=== PATIENT | male | born 1940 | race Caucasian/White ===

== ENCOUNTER 2017-01-07 14:28 | Inpatient (IN) ==
[2017-01-07 14:49] LABS: MANUAL DIFF NEEDED? NO
[2017-01-07 14:52] LABS: BASO% 0.3 % (0.0-0.8); EOS# 0.11 X1000 (0.0-0.7); HEMATOCRIT 37.2 % (42.0-52.0); HEMOGLOBIN 11.9 g/dL (14.0-18.0); IMM GRAN# 0.07 X1000 (0.0-0.04); IMM GRAN% 0.6 % (0.0-0.5); LYMPH% 16.2 % (20.5-51.1); MCH 29.4 PG (27-31); MCV 91.9 FL (81-99); MONO# 1.19 X1000 (0.11-0.59); MONO% 10.7 % (1.7-9.3); MPV 10.6 FL (7.4-10.4); NEUT% 71.2 % (42.2-75.2); PLT 378 X1000 (130-400); RBC 4.05 XMIL (4.7-6.1)
[2017-01-07 15:00] LABS: URINE SOURCE CATH
[2017-01-07 15:08] LABS: INR 1.03; PROTIME 10.8 Seconds (9.2-11.7); PTT 27.5 Seconds (22.0-36.0)
[2017-01-07 15:11] LABS: BILIRUBIN URINE SMALL (NEGATIVE); BLOOD URINE LARGE (NEGATIVE); CLARITY TURBID (CLEAR); COLOR BROWN; GLUCOSE URINE 100 mg/dL (NEGATIVE); LEUKOCYTES URINE MODERATE (NEGATIVE); NITRITE URINE POSITIVE (NEGATIVE); PH URINE 7.5; PROTEIN URINE 100 mg/dL (NEGATIVE); SP GRAVITY URINE 1.025
[2017-01-07 15:17] LABS: AGAP 15; ALBUMIN 3.6 g/dL (3.5-5.0); ALKALINE PHOSPHATASE 54 U/L (32-122); BUN 15 mg/dL (8-22); CALCIUM 9.7 mg/dL (8.8-10.2); CHLORIDE 100 mmol/L (98-107); COSMO 271; GOT 13 U/L (10-34); GPT 9 U/L (10-44); POTASSIUM 4.6 mmol/L (3.5-5.1); SODIUM 135 mmol/L (136-145); TCO2 20 mmol/L (25-35); TOTAL BILIRUBIN 0.24 mg/dL (0.20-1.00); TOTAL PROTEIN 7.1 g/dL (6.3-8.3)
[2017-01-07 15:21] LABS: URINE CAST NONE SEEN /LPF; URINE EPITHELIAL CELLS >10 /HPF (<10); URINE RBC TNTC /HPF (<10); URINE WBC TNTC /HPF (<10)
[2017-01-07 15:22] LABS: URINE CRYSTAL TRIPLE PHOS PRESENT /HPF
[2017-01-07 15:23] LABS: URINE CULTURE NEEDED? YES
[2017-01-07] MEDS ORDERED: NS 1,000 ML IV ONE ×3 (15:40→21:30)
[2017-01-07] MEDS ORDERED: ZOSYN 3.375 GM/NS 3.375 GM/50 ML IVPB IV ONE (16:46)
[2017-01-07 16:49] LABS: AMYLASE 59 U/L (20-200); LIPASE 76 U/L (13-60)
--- NOTE | 2017-01-07 16:56 | Diag Imaging Result Doc PS360 ---
EXAM: FLAT/UPRIGHT ABD/1 VIEW CHEST - 01/07/2017 HISTORY: Abd pain TECHNIQUE: Supine and upright abdomen one view chest COMPARISON: Portable chest of 06/03/2013 FINDINGS: The bowel gas pattern is unremarkable. There are some retained fecal debris in the colon. There is no free air identified. There are multiple metallic coils noted on the right. Upright chest shows upper normal heart size. There are calcified granuloma and calcified hilar mediastinal lymph nodes on the right from old granulomatous disease. There is a question a small nodular opacity at the right perihilar region. There is no consolidation, pleural effusion, or pneumothorax identified. IMPRESSION: Unremarkable bowel gas pattern. Apparent constipation. Questionable right perihilar nodule. Follow-up PA and lateral chest radiographs recommended when patient's condition permits. Electronically signed by Desean Blanchard 01/07/2017 4:54 PM
--- NOTE | 2017-01-07 19:34 | Diag Imaging Result Doc PS360 ---
EXAM: ABDOMEN/PELVIS W/CONTRAST - 01/07/2017 HISTORY: Abd pain and fecal component in the Cole bag TECHNIQUE: With oral and intravenous contrast. Dose reduction protocol. COMPARISON: None. FINDINGS: The visualized lung bases appear clear except for dependent atelectasis. There are calcified granulomas in the liver and spleen from old granulomatous disease. There are no other substantial abnormalities of the liver or spleen identified. There is nonspecific mild fullness of the bilateral adrenal glands. There are two calcifications in the pancreatic tail and there is dilatation the pancreatic duct in the pancreatic tail, which can be seen with chronic pancreatitis. There is a 2.2 x 1.7 cm cystic lesion in the pancreatic body which may represent pseudocysts or cystic pancreatic neoplasm. There is no acute pancreatic inflammation identified. There are no calcified gallstones seen. There is a 5 cm cyst which arises at the lower right kidney. A few additional tiny renal cysts. There is no evidence of solid renal mass or hydronephrosis. There are scattered nonspecific small retroperitoneal lymph nodes. There is a small anterior abdominal wall hernia at the right lower abdomen which contains a small amount of small bowel. There is no evidence of small bowel obstruction. There are postsurgical changes at the upper rectum. There is presacral soft tissue thickening. There is colonic diverticulosis which is most extensive at the sigmoid colon. There is a fistulous tract which extends between the anterior upper rectum and the posterior urinary bladder. There is apparent fecal material within the fistulous tract and within the urinary bladder. The urinary bladder painter appear thickened which may relate to cystitis. There is a suprapubic catheter in the urinary bladder. There is a small sinus tract which extends from the lateral left side of the superiormost rectum to the nearby presacral thickening. There is no discrete inflamed diverticulum identified. There is no free air. IMPRESSION: Postsurgical changes at the upper rectum. Presacral soft tissue thickening which may represent posttreatment scarring or chronic inflammation. Superimposed acute inflammation or tumor within the soft tissue thickening is not excluded. Fistula between the anterior superior rectum and the posterior superior urinary bladder. Extension of fecal material from the rectum into the urinary bladder. Thickened urinary bladder painter which may relate to cystitis. There is a suprapubic catheter within urinary bladder. Small air-containing sinus tract arising from superiormost rectum on the left. Colonic diverticulosis which is most extensive at the sigmoid. No discrete inflamed diverticulum identified. Small right lower anterior abdominal wall hernia which contains a small amount of small bowel. No evidence of small bowel obstruction. Calcifications and dilated pancreatic duct at pancreatic tail which may relate to chronic pancreatitis. 2.2 x 1.7 cm cystic lesion in pancreatic body which may represent pseudocyst or cystic pancreatic neoplasm. No evidence of acute pancreatic inflammation. Electronically signed by Desean Blanchard 01/07/2017 7:32 PM
[2017-01-07] MEDS ORDERED: TYLENOL PO PRN (21:51)
[2017-01-07] MEDS ORDERED: QUESTRAN PO ONE (21:51)
[2017-01-07] MEDS ORDERED: FLAGYL PO ONE (21:51)
[2017-01-07] MEDS ORDERED: UROGESIC-BLUE PO PRN (21:51)
[2017-01-07] MEDS ORDERED: ZOFRAN IV PRN (21:51)
[2017-01-07] MEDS: ZOCOR PO SCH (22:34)
[2017-01-07] MEDS: ZOSYN 3.375 GM/NS 3.375 GM/50 ML IVPB IV SCH (23:37)
[2017-01-07] MEDS: NS 1,000 ML IV SCH (23:37)
--- NOTE | 2017-01-08 02:40 | HISTORY AND PHYSICAL ---
PRIMARY CARE PHYSICIAN: Dr. Buckner. REASON FOR ADMISSION: A 2-day history of brownish urine in Cole bag and 10-day history of persistent diarrhea. HISTORY OF PRESENT ILLNESS: Mr. Parish Alvarado is a pleasant 76-year-old male with past medical history of prior BPH, neurogenic bladder status post suprapubic cystostomy, type 2 diabetes, colon cancer status post resection, coronary disease status post stent, hyperlipidemia, hypertension, prior CVA who comes in today with a 10-day history of persistent diarrhea with no blood or melena. Four to 5 days preceding this diarrhea, he had been on antibiotics for presumed UTI based on the culture report that was done by his primary care physician, Dr. Buckner. The patient's diarrhea is not related to meals. The says she has had to change him more frequently, more than 10-15 times a day and there is no warning when the diarrhea strikes. Surprisingly, no diffuse abdominal pain, no fever, no chills. She was concerned today when she noticed that the contents in his leg bag were brownish in color and looked somewhat like his feces. REVIEW OF SYSTEMS: Patient denies any cardiorespiratory complaints whatsoever but he is feeling weaker than normal. No new neurological complaints. A 12-system review is negative. Positive findings per HPI. ALLERGIES: None. MEDICATIONS: The patient's medication list has not been reconciled but I did note he was on Levaquin 250 mg daily and Macrobid 100 mg b.i.d. The rest of the medications I am going to mention have not been fully reconciled. 1. Norvasc 5 mg daily. 2. Aspirin 81 mg daily. 3. Plavix 75 mg daily. 4. Cymbalta 60 mg daily. 5. Hydrochlorothiazide 25 mg daily. 6. Insulin 70/30 25 units with breakfast and 30 units with supper. 7. Lisinopril 40 mg daily. 8. Metformin 850 mg b.i.d. 9. Methylene blue 1 daily. 10. Metoprolol succinate 50 mg daily. 11. Protonix 40 mg daily. 12. Zocor 40 mg at bedtime. PAST SURGICAL HISTORY: He has had a partial colectomy in 2001, vasectomy, port placement, back surgery, stent placement, hernia surgery, suprapubic cystostomy. FAMILY HISTORY: Positive for diabetes, stroke, heart disease and uterine cancer in first-degree relatives. SOCIAL HISTORY: He is a , , lives with . Does not smoke, drink, or use illicit drugs. LAB WORK: White count 11,000, hemoglobin 11, hematocrit 37, platelets 378,000. Sodium is 135, bicarb 28, anion gap 15, BUN 15, creatinine 1.1. Troponin 0.021. Lipase 76. Lactate 4. PT and PTT is normal. Urinalysis positive for large blood, positive nitrate, lvd-dcoalbjr-mw-count WBCs and qkn-waudwmyz-mj-count RBCs, 4+ bacteria, yeast was present. CT scan of abdomen was done and it showed postsurgical changes in the upper rectum, presacral soft tissue thickening which may represent posttreatment scarring or chronic inflammation. Tumor or acute inflammation cannot be excluded. There is also a fistula between the anterior superior rectum and the posterior superior urinary bladder, extension of fecal material from the rectum into the urinary bladder is noted. Also has colonic diverticulosis and findings related to chronic pancreatitis is also noted. The patient also has an anterior abdominal hernia which showed small amount of bowel which is not incarcerated. abdominal x-ray showed a questionable perihilar node. Followup PA and lateral chest is recommended at that time. PHYSICAL EXAMINATION: GENERAL: Pleasant, elderly man who is not in acute distress. He is A and O x3 with normal mood and affect. HEENT: Head is normocephalic, atraumatic. Eyes: SCOTT EOMI. He is anicteric but pale. ENT and oropharynx exam is grossly normal, mildly moist oral mucosa. No oropharyngeal exudates and no cyanosis noted. VITAL SIGNS: Blood pressure is 169/56, heart rate 72, respirations is 20, temperature 98.9 degrees, 97% on room air. NECK: Supple. No JVD or carotid bruit. No thyromegaly. Mild decreased skin turgor. CHEST: Clear to auscultation. Good entry in both lung keyes. CARDIOVASCULAR: First and sounds heard. No gallops, rubs. Rhythm is regular. ABDOMEN: Protuberant, soft, with a reducible ventral hernia. There is tenderness confined to the suprapubic area. There is a pubic cystostomy with no overt fecal drainage of purulent material draining at the ostomy site. The aforementioned abdominal tenderness. There is no rebound or guarding noted. No mass is appreciated. Bowel sounds are normal. RECTAL: Deferred. EXTREMITIES: There is 1+ pitting edema in the lower extremities. Pulses distally in all extremities have good volume and are symmetrical. No clubbing or peripheral cyanosis. NEUROLOGICAL: Patient has dense left-sided hemiplegia. Power on the right side is rated at 4/5. No other neurological findings of note. SKIN: Intact with no overt breakdown, at least from the ventral portion of this patient. I did not look at his sacral area. MUSCULOSKELETAL: Appears grossly normal. ASSESSMENT: 1. Rectovesical fistula. 2. Urinary tract infection presumably from #1. 3. Subacute diarrhea,? antibiotic induced diarrhea versus Clostridium difficile. 4. Coronary artery disease. 5. Type 2 diabetes. 6. Hypertension. 7. Neurogenic bladder. 8. Chronic pancreatitis. 9. Hyperlipidemia. PLAN: 1. Immediate goal is to hydrate this patient due to the fact he has depressed lactate in the face of normal kidney and renal failure. This is probably secondary to significant hypovolemia from his persistent diarrhea. Repeat lactate later to document the effect of fluid hydration on his volume status. 2. Patient will be empirically started on Questran and Flagyl in case this patient has Clostridium difficile from his use of multiple antibiotics in the last 2 weeks. Clostridium difficile toxin has been ordered and will need to be followed. 3. Patient was empirically started on Zosyn for presumptive UTI. This UTI may be just colonization but, however, due to the amount of fecal material and a documented rectovesical fistula, this could probably be true/real infection. Will consult Dr. Gilbert for his expertise in addressing this matter. If surgical intervention is going to be carried out, I have held the patient's Plavix but continued aspirin in anticipation of this. 4. Regarding diabetes, will start patient on Lantus and sliding scale. Blood pressure medications will be relatively conservative since the patient may have some significant hypovolemia and would not want to aggravate the patient's compensatory mechanisms to correct this. 5. DVT prophylaxis will be SCDs in anticipation of possible intervention. cc: MD Werner Wooten MD Nixon Gillespie, MD
[2017-01-08] MEDS: ZOSYN 3.375 GM/NS 3.375 GM/50 ML IVPB IV SCH ×4 (05:31→23:59)
[2017-01-08] MEDS: NS 1,000 ML IV SCH ×2 (05:42→08:53)
[2017-01-08 06:21] LABS: MANUAL DIFF NEEDED? NO
[2017-01-08 06:32] LABS: BASO% 0.3 % (0.0-0.8); EOS# 0.13 X1000 (0.0-0.7); EOS% 1.6 % (0.0-10.0); HEMOGLOBIN 10.1 g/dL (14.0-18.0); IMM GRAN# 0.02 X1000 (0.0-0.04); IMM GRAN% 0.3 % (0.0-0.5); LYMPH# 1.64 X1000 (1.2-3.4); LYMPH% 20.5 % (20.5-51.1); MCH 29.2 PG (27-31); MCHC 31.6 g/dL (33-37); MCV 92.5 FL (81-99); MONO# 0.96 X1000 (0.11-0.59); MPV 10.9 FL (7.4-10.4); NEUT% 65.3 % (42.2-75.2); PLT 284 X1000 (130-400); RBC 3.46 XMIL (4.7-6.1)
[2017-01-08] MEDS: HUMALOG SUBQ SCH ×4 (06:36→22:32)
[2017-01-08] MEDS: PROTONIX PO SCH (06:37)
[2017-01-08 07:34] LABS: AGAP 12; ALBUMIN 2.9 g/dL (3.5-5.0); ALKALINE PHOSPHATASE 45 U/L (32-122); BUN 12 mg/dL (8-22); CHLORIDE 106 mmol/L (98-107); COSMO 278; GOT 12 U/L (10-34); GPT 6 U/L (10-44); POTASSIUM 4.7 mmol/L (3.5-5.1); SODIUM 139 mmol/L (136-145); TCO2 21 mmol/L (25-35); TOTAL BILIRUBIN 0.34 mg/dL (0.20-1.00); TOTAL PROTEIN 5.7 g/dL (6.3-8.3)
[2017-01-08] MEDS: QUESTRAN PO SCH ×4 (08:45→18:07)
[2017-01-08] MEDS: ASPIRIN PO SCH ×3 (08:47→09:23)
[2017-01-08] MEDS: TOPROL XL PO SCH ×3 (08:47→09:23)
[2017-01-08] MEDS: NORVASC PO SCH ×3 (08:47→09:23)
[2017-01-08] MEDS: FLAGYL PO SCH ×5 (08:47→18:07)
[2017-01-08] MEDS: PRINIVIL PO SCH ×3 (08:47→09:23)
[2017-01-08] MEDS: LANTUS SUBQ SCH ×3 (08:48→09:23)
--- NOTE | 2017-01-08 09:59 | Diag Imaging Result Doc PS360 ---
EXAM: CHEST-1 VIEW HISTORY: lung nodule TECHNIQUE: Upright AP COMPARISON: 01/07/2017 FINDINGS: The lungs are well expanded. The heart is not enlarged. The vessels are not distended. There are no infiltrates. No effusion identified. No definite lung nodules identified. There are scattered granuloma and calcified lymph nodes. IMPRESSION: Stable chest. A CT is recommended if clinical suspicion persists. Electronically signed by Arsh Carmen 01/08/2017 9:56 AM
[2017-01-08] MEDS ORDERED: D5 1/2 NS 1,000 ML IV SCH (17:12)
[2017-01-08] MEDS ORDERED: D5 NS 1,000 ML IV SCH (17:12)
--- NOTE | 2017-01-08 18:08 | PROGRESS NOTE ---
DATE: 01/08/2017 SUBJECTIVE: This patient states that he is feeling fine. He is not complaining of chest pain, belly pain, shortness of breath or headache. Family members at the bedside. No events overnight. OBJECTIVE: Vital Signs: Temperature 98 degrees, pulse 65, respiratory rate 20, blood pressure 157/65, oxygen saturation 99% on room air. HEENT: Head normocephalic. No trauma. PERRLA. Neck: Supple. No JVD. No masses. Central trachea. Chest: Clear to auscultation. No wheezing. No rales. Abdomen: Soft, nontender, nondistended. Obese. Extremities: Trace lower extremity edema. No clubbing. No cyanosis. Neurological: The patient is alert and oriented x3. No focal neurological deficits. Genitourinary: This patient has a Cole catheter and the urine is cloudy. LABORATORY: WBC 8, hemoglobin 10.1, hematocrit 32, platelets 284,000. Sodium 139, potassium 4.7, chloride 106, bicarbonate 21, BUN 12, creatinine 1.1, glucose 116, calcium 8, albumin 2.9. ASSESSMENT AND PLAN: 1. Rectovesical fistula, Urology Department has been consulted. Pending the evaluation and recommendations, we will keep this patient on antibiotics. 2. Urinary tract infection likely secondary to #1. 3. Subacute diarrhea. Clostridium difficile toxin has been negative. He has a positive Hemoccult, we will continue to monitor. 4. History of coronary artery disease. This patient is not complaining of chest pain. We will continue with the same management. 5. Type 2 diabetes. Stable. We will monitor. 6. Hypertension. This is chronic and stable. Blood pressure is in the 150s. We will monitor. 7. Neurogenic bladder. We will monitor. 8. Chronic pancreatitis. Aware. He is not complaining of abdominal pain. 9. Hyperlipidemia. Continue with simvastatin. cc: Darshan Dorado MD
--- NOTE | 2017-01-08 20:45 | CONSULTATION ---
DATE OF CONSULTATION: 01/08/2017 ATTENDING AND REFERRING PHYSICIAN: Hospitalist. HISTORY OF PRESENT ILLNESS: This 76-year-old male has a history of colon cancer. He is status post partial colectomy with subsequent chemoradiation in 2001. He has a history of diverticulitis and was admitted with a colovesical fistula. The patient and state that he noted fecal material in the drainage tubing and bag. The patient's states his suprapubic tube becomes stopped up with fecal material. His CT scan of the abdomen and pelvis with IV contrast confirmed the fistula. The patient has a neurogenic bladder and had a suprapubic tube placed in 2009. He was last seen in the [facility]rology Clinic in 2012. He states home health changes the suprapubic tube and he is followed closely by his family doctor. He has a history of peripheral vascular disease, and is status post CVA x3. PAST MEDICAL HISTORY: Colon cancer, diverticulosis, hypertension, elevated cholesterol, coronary artery disease, peripheral vascular disease, status post multiple CVAs with resulting left-sided weakness. CURRENT MEDICATIONS: Documented on the chart. PAST SURGICAL HISTORY: Cystoscopic exam with placement of suprapubic tube. Partial colectomy, as noted in the history of present illness. Coronary artery stent placement. Lower back surgery. Hernia repair. SOCIAL HISTORY: No tobacco or alcohol use. He lives with his . ALLERGIES: No known drug allergies. REVIEW OF SYSTEMS: Usually in good health. He denies any problems with diabetes or seizure activity. He denies any abdominal pains. PHYSICAL EXAMINATION: General: An obese, age apparent, normally developed, white male, who is cooperative. HEENT: Normal for age. Lungs: Clear. Cardiovascular: Regular rate and rhythm. Abdomen: Obese soft, nontender. No hepatosplenomegaly or masses. Normal bowel sounds. : Uncircumcised male with significant phimosis. The suprapubic tube is in place draining well. The urine appears brown. Both testes are down and atrophic. No inguinal hernias. Rectal: Decreased sphincter tone. Prostate about 30 g, firm. Extremities: +1 pretibial pitting edema. No cyanosis or clubbing. Neurologic: Left-sided weakness to paralysis, right side normal. LABORATORY EVALUATION: He has a white count of 8, hemoglobin 10.1, hematocrit 32, platelets are 284,000. Serum electrolytes are normal. BUN 12, creatinine 1.1. His alkaline phosphatases is 6. Liver functions are normal. IMPRESSION: 1. Colovesical fistula. 2. Diverticulitis. 3. Neurogenic bladder. 4. Indwelling suprapubic tube. The patient's states the suprapubic tube was changed yesterday. RECOMMENDATIONS: Recommend General Surgery consultation. The treatment for a colovesical fistula is partial colectomy. When the fistula is removed along with the diseased colon, the bladder is healed. It rarely has to be sutured closed. With his history of colon cancer with chemoradiation, he will probably need a diversion with formation of a colostomy. Thank you for this consultation. cc: Werner Gilbert MD
[2017-01-08] MEDS: ZOCOR PO SCH (22:32)
[2017-01-09] MEDS ORDERED: NS 500 ML IV ONE ×2 (03:46→03:48)
[2017-01-09 05:55] VITALS: BP 104/72
[2017-01-09] MEDS: ZOSYN 3.375 GM/NS 3.375 GM/50 ML IVPB IV SCH (06:21)
[2017-01-09] MEDS: HUMALOG SUBQ SCH (06:21)
[2017-01-09] MEDS: PROTONIX PO SCH (06:21)
[2017-01-09] MEDS ORDERED: INSULIN PEN NEEDLES ONE (06:28)
[2017-01-09 07:18] LABS: MANUAL DIFF NEEDED? NO
[2017-01-09 07:33] LABS: BASO% 0.2 % (0.0-0.8); EOS# 0.12 X1000 (0.0-0.7); EOS% 1.3 % (0.0-10.0); HEMOGLOBIN 10.2 g/dL (14.0-18.0); IMM GRAN# 0.03 X1000 (0.0-0.04); IMM GRAN% 0.3 % (0.0-0.5); LYMPH# 1.36 X1000 (1.2-3.4); LYMPH% 14.5 % (20.5-51.1); MCH 29.5 PG (27-31); MCHC 31.9 g/dL (33-37); MCV 92.5 FL (81-99); MONO# 1.04 X1000 (0.11-0.59); MONO% 11.1 % (1.7-9.3); MPV 10.7 FL (7.4-10.4); NEUT% 72.6 % (42.2-75.2); PLT 271 X1000 (130-400); RBC 3.46 XMIL (4.7-6.1)
[2017-01-09 07:45] LABS: AGAP 12; BUN 11 mg/dL (8-22); CALCIUM 8.5 mg/dL (8.8-10.2); CHLORIDE 108 mmol/L (98-107); COSMO 283; POTASSIUM 4.6 mmol/L (3.5-5.1); SODIUM 141 mmol/L (136-145); TCO2 21 mmol/L (25-35)
[2017-01-09] MEDS: PRINIVIL PO SCH (11:16)
[2017-01-09] MEDS: FLAGYL PO SCH (11:16)
[2017-01-09] MEDS: NORVASC PO SCH (11:16)
[2017-01-09] MEDS: ASPIRIN PO SCH (11:17)
[2017-01-09] MEDS: TOPROL XL PO SCH (11:17)
[2017-01-09] MEDS: LANTUS SUBQ SCH (11:17)
[2017-01-09] MEDS: QUESTRAN PO SCH (11:18)
--- NOTE | 2017-01-09 11:34 | CONSULTATION ---
DATE OF CONSULTATION: 01/09/2017 REASON FOR CONSULTATION: Concerning colovesicular fistula. HISTORY OF PRESENT ILLNESS: A 76-year-old male with a history of BPH, neurogenic bladder, previous colon cancer, presenting now with a 2-day history of brownish urine from his Cole back and from the suprapubic catheter. Prior to presentation he had been on antibiotics by his primary care physician for presumed UTI. He denies any significant abdominal pain. The patient is somewhat confused and cannot give me a full history, and his is not present at the bedside currently to give anymore information. I did review the H and P as dictated by Dr. Womack and the consult note as dictated by Dr. Gilbert and reviewed what they have said. PAST MEDICAL HISTORY: BPH, neurogenic bladder, type 2 diabetes, colon cancer, coronary artery disease status post stenting, hyperlipidemia, hypertension, previous CVA. PAST SURGICAL HISTORY: Partial colectomy in 2001, vasectomy, previous port PEG placement, back surgery, coronary artery stent placement. What appears to be a large ventral hernia repair. Suprapubic catheter placement. HOME MEDICATION: Norvasc, aspirin, Plavix, Cymbalta, hydrochlorothiazide, insulin, lisinopril, metformin, methylene blue, metoprolol, Protonix, Zocor. ALLERGIES: None. FAMILY HISTORY: Positive for diabetes. Stroke. Heart disease. Uterine cancer. SOCIAL HISTORY: Denies alcohol, tobacco or illicit drugs. REVIEW OF SYSTEMS: A full 10 point review of systems obtained, negative except as specified in HPI. PHYSICAL EXAMINATION: Vital Signs: Patient is currently afebrile. His vital signs have been stable. General: No acute distress, but mildly confused male who looks stated age. HEENT: Normocephalic, atraumatic. Pupils equal, round, reactive to light. Mucous membranes moist. Oropharynx benign. Neck: Supple. Trachea midline. Cardiovascular: Regular rate and rhythm. Lungs: Grossly clear. Abdomen: Soft, nontender. Previous midline incision noted healing well. He does have a suprapubic catheter in place. There is some brownish drainage near it. Extremities: Moves all extremities. Neurologic: Some left-sided weakness. Vascular: All extremities perfused. LABORATORY: Reviewed from yesterday. IMAGING: CT scan independently reviewed and radiology report reviewed. ASSESSMENT/PLAN: A 76-year-old, male with multiple medical comorbidities presenting now with likely colovesicular fistula. 1. Multiple medical comorbidities, at this time currently being managed by the hospitalist service. He is on Plavix and prior to any surgical intervention we would need to hold his Plavix for at least 3-5 days if possible. 2. Colovesicular fistula. At this time, patient does have all signs point to this as occurring. He would be high risk for surgery, but the likely best surgical option would be an end- colostomy given his radiation down his pelvis. He also has a ventral hernia which looks like mesh on the CT scan noted which may complicate the entire process. Patient's is not currently at the bedside to give any further history. So, we will need to have a further discussion with the about surgical intervention, but I suspect diversion is likely the only possibility for him. I appreciate the consult. cc: Ryan Patton MD
[2017-01-09] MEDS ORDERED: AUGMENTIN PO SCH (21:00)
--- NOTE | 2017-01-10 11:01 | DISCHARGE SUMMARY ---
ADMISSION DATE: 01/07/2017 DISCHARGE DATE: 01/09/2017 DISCHARGE DIAGNOSES: 1. Possible rectovesical fistula. Urology Department and Surgery Department evaluated this patient. 2. Urinary tract infection, likely secondary to #1. 3. History of coronary artery disease. 4. Type 2 diabetes. 5. Hypertension. 6. Neurogenic bladder. 7. Chronic pancreatitis. 8. Hyperlipidemia. HOSPITAL COURSE: This is a 76-year-old, male, with a past medical history of benign prostatic hypertrophy, neurogenic bladder, status post suprapubic cystoscopy, type 2 diabetes, colon cancer, status post resection and radiation and chemotherapy, coronary artery disease status post stent, hyperlipidemia, hypertension, prior cerebrovascular accident, came in and was admitted on 01/07/2017 secondary to persistent diarrhea with no blood or melena, not related to meals, without abdominal pain. No fever, no chills. What was really concerning, is that we noticed that this patient has a urine bag that is brownish in color and this is likely related to feces. Probably this patient has a communication between his bowel with the bladder. Urology Department evaluated this patient and they suggested to do surgery. General surgery was consulted and they discussed the case with the patient. Probably this patient has a colovesicular fistula. They explained to the patient that he is a high risk for surgery based on his multiple comorbidities and the best surgical option would be an end colostomy, given his radiation down his pelvis. So the surgeon suspected that diversion is likely the only possibility for him. The family member and the patient call me. I discussed also the case with him and his , but he refused that and he wanted to go home, even though I told him that is not a good idea, that he will probably end up with sepsis with a septic picture. I explained all the risk and benefits of the surgery and he seems to understand, but anyway he wanted to go home AMA. I decided to give him some antibiotics, Augmentin twice a day for 10 days and I told him and his to go to his primary care doctor next Wednesday or Wednesday. TIME DISCUSSING THE CASE WITH THE PATIENT: About 45 minutes. cc: Darshan Dorado MD
--- NOTE | 2017-01-13 06:12 | PROVIDER DOCUMENTATION ---
This chart was entered by Dorinda Dominguez Scribe, acting as scribe for Mihaela Carlton MD. HPI-Male Problem <RgDrake Sha - Last Filed: 01/07/17 20:16> - General Source: patient, family () - History of Present Illness-Male Location of Complaint: reports: unknown Radiation: reports: none Quality of Pain: reports: none Severity in ED: reports: mild Onset/Duration: reports: gradual (10 days) Timing: reports: still present Context/Activities at Onset: reports: light activity Urinary Symptoms: reports: other (feces in bag) Associated Symptoms: reports: other (feces in cath bag) Associated Symptoms: reports: diarrhea, other (feces in cath bag). denies: diaphoresis, fever/chills, muscle aches, nausea, rash, seizure, syncope, vomiting, weakness Similar Symptoms Previously?: No Recently seen or treated by another doctor?: No <Mihaela Carlton - Last Filed: 01/13/17 06:12> - General Chief Complaint: Male Stated Complaint: MALE Time Seen by Provider: 01/07/17 15:34 Allergies/Adverse Reactions: Patient Allergies Allergy/AdvReac Type Severity Reaction Status Date / Time No Known Allergies Allergy Verified 10/28/13 00:37 Home Medications: Home Medication List Medication Instructions Recorded Confirmed Last Taken Type Aspirin 81 mg PO DAILY 06/01/13 01/07/17 10/27/13 09:00 History Clopidogrel [Plavix] 75 mg PO DAILY 06/01/13 01/07/17 10/27/13 09:00 History Duloxetine [Cymbalta] 60 mg PO DAILY 06/01/13 01/07/17 10/27/13 09:00 History Hydrochlorothiazide 25 mg PO DAILY 06/01/13 01/07/17 10/28/13 09:00 History Metoprolol [Lopressor] 100 mg PO DAILY 06/01/13 01/07/17 10/27/13 09:00 History SIMVAstatin [Zocor] 40 mg PO QHS 06/01/13 01/07/17 10/28/13 09:00 History Insuln Asp Prt/Aspart [Novolog Mix 35 unit SUBQ WBREAKFAST #0 vial 06/05/1310/28/13 00:00 Rx 70/30] Metformin [Glucophage] 850 mg PO BID #0 tablet 06/05/13 01/07/17 10/27/13 09:00 Rx Metoprolol Succinate E.r. [Toprol 50 mg PO DAILY #0 tablet 06/05/13 01/07/1708/11 09:00 Rx Xl] Pantoprazole [Protonix] 40 mg PO DAILY #0 tablet 06/05/13 01/07/17 10/27/13 09: 00 Rx Amlodipine [Norvasc] 5 mg PO DAILY #0 tablet 06/07/13 01/07/17 10/27/13 09:00 Rx LISINOpril [Prinivil] 40 mg PO DAILY #0 tablet 06/08/13 01/07/17 10/28/13 09:00 Rx Methen/M-Blue/Ja/Na Phos/Hyos 1 each PO DAILY PRN PRN 10/28/13 01/07/17 17:00 History [Ustell Capsule] Amoxicillin/Pot Clavulanate 875 mg PO BID #20 tablet 01/09/17 Unknown Rx [Augmentin] - History of Present Illness-Male Nature of Presenting Problem: 76 y/o M presents to ED cc of Male . 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 Pt states x 10 days his cath bag has had feces in it. Pt had a new tube placed today and currently has more feces in bag. Pt has had diarrhea. denies pt having any fever. Pt denies having any pain. 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 Pt is alert and oriented. states december 11 pt started having blood from his penis when they diagnosed him with a UTI. Pt has been on serval antibiotics since this UTI. (Dorinda Dominguez) 76 y/o M presents to ED cc of Male . 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 Pt states x 10 days his cath bag has had feces in it. Pt had a new tube placed today and currently has more feces in bag. Pt has had diarrhea. denies pt having any fever. Pt denies having any pain. 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 Pt is alert and oriented. states december 11 pt started having blood from his penis when they diagnosed him with a UTI. Pt has been on serval antibiotics since this UTI. (Mihaela Carlton) Review of Systems - Adult - REVIEW OF SYSTEMS - ADULT ROS:: ROS per family Constitutional: denies: chills, fever Ears, Nose, Mouth & Throat: denies: ear pain, throat pain Cardiovascular: denies: chest pain, palpitations Respiratory: denies: cough, pleurisy, shortness of breath, wheezing Gastrointestinal: denies: abdominal pain, diarrhea, nausea, poor appetite, rectal bleeding, vomiting Genitourinary: reports: other (feces in cath bag). denies: flank pain Musculoskeletal: denies: bone pain, back pain, joint swelling, muscle aches Neurological: denies: dizziness/vertigo, headache/migraines, seizure, slurred speech <Mihaela Carlton - Last Filed: 01/13/17 06:12> Past History - Adult - PAST MEDICAL HISTORY-ADULT Review of Records: reports: Old Records Reviewed, Nursing Assessment Review Cardiovascular: reports: HTN, hyperlipidemia, [place] Genitourinary: reports: cancer (colon) Neurological: reports: CVA Endocrine/Immune: reports: Diabetes - PRIOR SURGERIES/PROCEDURES Surgical/Procedure History: reports: hernia repair - IMMUNIZATION STATUS Childhood Immunizations: See Nurse Assessment Flu Vaccine: See Nurse Assessment - SOCIAL HISTORY Smoking: denies, non-smoker Substance Use: none/never, denies <Mihaela Carlton - Last Filed: 01/13/17 06:12> Physical Exam-General - PHYSICAL EXAM-ADULT Initial Vital Signs Reviewed: Yes - CONSTITUTIONAL General Appearance: appears well, alert, no apparent distress, obese - EYES Eyes: pink conjunctivae - HEAD, EARS, NOSE, MOUTH & THROAT HENMT: moist mucous membranes, normal ENT inspection - NECK Neck: non-tender, full range of motion - RESPIRATORY Respiratory: chest non-tender, lungs clear, normal breath sounds - CARDIOVASCULAR Cardiovascular: normal peripheral pulses, regular rate, rhythm, no edema - GASTROINTESTINAL (ABDOMEN) Abdominal Exam: normal bowel sounds, soft, tenderness (when pressed on) - MUSCULOSKELETAL Back Exam: normal inspection, no CVA tenderness, no vertebral tenderness Extremity: normal range of motion, non-tender - SKIN Integumentary: normal color, normal turgor, warm/dry - NEUROLOGIC Neurologic: grossly normal, no motor/sensory deficits - PSYCHIATRIC Psych/Mental Status: normal mood/affect, normal thought content, normal thought process, oriented x 3 <Mihaela Carlton X - Last Filed: 01/13/17 06:12> Progress - PLAN OF CARE/RESULTS Result Diagrams: 01/07/17 14:40 01/07/17 14:40 <Drake Diez - Last Filed: 01/07/17 20:16> - PLAN OF CARE/RESULTS Result Diagrams: 01/09/17 07:11 01/09/17 07:11 - CHANGE OF SHIFT REPORT (ED Provider) Report Given and Care Transferred to:: Time of Transfer: 18:00 Items Pending: Labs, CT/MRI Results <Mihaela Carlton X - Last Filed: 01/13/17 06:12> - PLAN OF CARE/RESULTS Progress/Plan/Lab Results: Orders Category Date Time Status Admit - [facility] Routine [id number] 01/07/17 21:51 Ordered Apply Mechanical Device [QM] ORDERED Care 01/07/17 21:51 Completed Currently Rec Mechanical Proph [QM] ROUTINE Care 01/07/17 21:51 Completed FSBS/Accucheck Result AC + HS Care 01/07/17 21:51 Active Intake and Output-Strict ORDERED Care 01/07/17 21:51 Active Nursing- MD Consult Request ROUTINE Care 01/07/17 21:51 Completed Saline Loc DIRECTED Care 01/07/17 15:40 Completed Vital Signs Order Q 8-HR ASSESS Care 01/07/17 21:51 Active Physician/Provider Consults Routine Cons 01/07/17 21:51 Ordered Diabetic Diet Diet 01/07/17 20:58 Completed ABDOMEN/PELVIS W/CONTRAST [CT] Stat Exams 01/07/17 16:47 Completed FLAT/UPRIGHT ABD/1 VIEW CHEST [RAD] Stat Exams 01/07/17 15:40 Completed AMYLASE [CHEM] Stat Lab 01/07/17 14:40 Completed BLOOD CULTURE [BLDCUL] Stat Lab 01/07/17 15:39 Results C DIFF TOXIN [STOOL] Stat Lab 01/07/17 23:59 Completed CBC WITH DIFF [HEME] Routine Lab 01/08/17 06:02 Completed CBC WITH DIFF [HEME] Stat Lab 01/07/17 14:40 Completed CMP [COMPREHENSIVE METABOLIC PANEL] [CHEM] Stat Lab 01/07/17 14:40 Completed COMPREHENSIVE METABOLIC PANEL [CHEM] Routine Lab 01/08/17 06:02 Completed LACTATE, PLASMA [CHEM] Stat Lab 01/07/17 15:38 Completed LACTATE, PLASMA [CHEM] Stat Lab 01/07/17 20:29 Completed LIPASE [CHEM] Stat Lab 01/07/17 14:40 Completed OCCULT BLOOD SCREENING [STOOL] Stat Lab 01/07/17 23:59 Completed PROTIME WITH INR [COAG] Stat Lab 01/07/17 14:40 Completed PTT [COAG] Stat Lab 01/07/17 14:40 Completed STOOL CULTURE [RM] Routine Lab 01/07/17 23:59 Completed TROPONIN T Stat Lab 01/07/17 14:40 Completed URINE CULTURE [RM] Routine Lab 01/07/17 15:24 Completed WBC STOOL [STOOL] Stat Lab 01/07/17 23:59 Completed 0.9% Sodium Chloride Inj [Ns] 1,000 ml Med 01/07/17 21:51 Discontinued IV 125 mls/hr 0.9% Sodium Chloride Inj [Ns] 1,000 ml Med 01/07/17 15:40 Discontinued IV 999 mls/hr 0.9% Sodium Chloride Inj [Ns] 1,000 ml Med 01/07/17 21:14 Discontinued IV 999 mls/hr 0.9% Sodium Chloride Inj [Ns] 1,000 ml Med 01/07/17 21:30 Discontinued IV 999 mls/hr Acetaminophen [Tylenol] Med 01/07/17 21:51 Discontinued 650 mg PO Q6H PRN PRN Amlodipine [Norvasc] Med 01/08/17 09:00 Discontinued 5 mg PO DAILY Aspirin Med 01/08/17 09:00 Discontinued 81 mg PO DAILY Cholestyramine [Questran] Med 01/07/17 21:51 Discontinued 4 gm PO NOW ONE Cholestyramine [Questran] Med 01/08/17 09:00 Discontinued 4 gm PO TID Insulin Glargine [Lantus] Med 01/08/17 09:00 Discontinued 20 unit SUBQ QAM Insulin Lispro [Humalog] Med 01/08/17 07:00 Discontinued See Protocol SUBQ AC + HS LISINOpril [Prinivil] Med 01/08/17 09:00 Discontinued 40 mg PO DAILY Methen/Na Phos/Meth Blue/Hyos [Urogesic-Blue] Med 01/07/17 21:51 Discontinued 1 each PO DAILY PRN PRN Metoprolol Succinate E.r. [Toprol Xl] Med 01/08/17 09:00 Discontinued 50 mg PO DAILY Metronidazole [Flagyl] Med 01/07/17 21:51 Discontinued 500 mg PO NOW ONE Metronidazole [Flagyl] Med 01/08/17 09:00 Discontinued 500 mg PO TID Ondansetron [Zofran] Med 01/07/17 21:51 Discontinued 4 mg IV Q4H PRN PRN Pantoprazole [Protonix] Med 01/08/17 07:00 Discontinued 40 mg PO DAILY@0700 Piperacil/Tazobact 3.375 gm/Ns [Zosyn 3.375 gm/Ns] Med 01/07/17 16:46 Discontinued 3.375 gm in 50 ml IV NOW Piperacil/Tazobact 3.375 gm/Ns [Zosyn 3.375 gm/Ns] Med 01/07/17 23:00 Discontinued 3.375 gm in 50 ml IV Q6H SIMVAstatin [Zocor] Med 01/07/17 21:51 Discontinued 40 mg PO QHS Transfer/Admit Order [TRANSFER] Routine Transfer 01/07/17 20:56 Completed PLAN: LABS , CT OF ABD , FLUIDS (Dorinda Dominguez) report given to Dr. Womack, hospitalist, who will admit patient (Drake Diez) PLAN: LABS , CT OF ABD , FLUIDS (Mihaela Carlton) Departure - Departure Date of Disposition Decision: 01/07/17 Time of Disposition Decision: 20:10 Certified Medical Emergency: Emergent <Drake Diez - Last Filed: 01/07/17 20:16> - Departure Date of Disposition Decision: 01/07/17 Time of Disposition Decision: 20:10 Certified Medical Emergency: Emergent - Critical Care Note This patient required my direct & personal management of CC.: No <Mihaela Carlton - Last Filed: 01/13/17 06:12> - Departure DIAGNOSIS: Urinary tract infection, Recto-bladder neck fistula, Lactic acidosis Disposition: ADMITTED INPATIENT 09 Condition: Stable This chart was documented by the indicated scribe, (Dorinda Dominguez Scribe) and accurately reflects the services I performed and decisions made by me, Mihaela Carlton MD, as attested by the provider's signature.
== END 2017-01-09 12:07 | disposition left against medical advice (07) ==
LOC: ED 14:28 → SUATTDRO 21:26 → 4N 21:26
PROVIDERS: ATTEND Internal Medicine